=== PATIENT | female | born 1945 | race Caucasian/White ===

== ENCOUNTER → 2018-05-05 06:12 | Outpatient (CLI) | payer MEDICARE, SELFPAY ==
--- NOTE | 2018-05-05 06:17 | DI.MRI.S_ITS ---
PROCEDURE: MR SHOULDER LT WO CON INDICATIONS: pain and disability TECHNIQUE: Noncontrast oblique coronal T2 fast spin echo with fat saturation, oblique sagittal T1 spin echo and T2 fast spin echo with fat saturation, axial T1 spin echo and T2 fast spin echo with fat saturation through the shoulder. COMPARISON: [facility], MR, MR SHOULDER RT WO CON, 05/05/2018, 6:38. FINDINGS: Image quality: Excellent. Rotator cuff: There is tendinosis a moderate grade articular surface partial-thickness tear involving distal supraspinatus and infraspinatus at their insertion on greater tuberosity of the humeral head extending to musculotendinous junction. Tendinosis and low-grade intrasubstance partial thickness involving distal subscapularis is also seen. Sagittal images demonstrate moderate supraspinatus muscle atrophy. Bones and bursae: Moderate to severe glenohumeral joint osteoarthritis and moderate acromioclavicular joint osteoarthritis is seen. Mild edema in humeral head and adjacent acetabulum is seen. Intraosseous cyst formation and greater tuberosity of humeral head is also noted. There is moderate amount of glenohumeral joint fluid and small amount of subacromial subdeltoid bursal fluid. No gross loose body. Mild synovial lining thickening is seen suggestive of synovitis. The acromion demonstrates conventional anatomy, without an os acromiale. Capsule and soft tissues: In the absence of intra-articular contrast, the glenohumeral ligaments appear intact. There is global signal abnormality and contour irregularity throughout labrum suggestive of extensive labral tear. The long head of the biceps tendon demonstrates normal location and morphology. The rotator interval appears normal, without fibrosis. The coracohumeral ligament is normal in thickness. IMPRESSION: 1. Tendinosis are moderately articular surface partial-thickness involving distal supraspinatus and infraspinatus. Tendinosis and low-grade intrasubstance partial thickness involving distal subscapularis. Moderate supraspinatus muscle atrophy. 2. Moderate to severe glenohumeral joint osteoarthritis and moderate acromioclavicular joint osteoarthritis. Moderate amount of joint fluid and small amount of subacromial subdeltoid bursal fluid with suggestion of mild synovitis. No gross loose body. 3. Suggestion of extensive labral tear. Dictated by: Luke Momin M.D. on 05/05/2018 at 9:13 Approved by: Luke Momin M.D. on 05/05/2018 at 10:26
--- NOTE | 2018-05-05 06:17 | DI.MRI.S_ITS ---
PROCEDURE: MR SHOULDER RT WO CON INDICATIONS: pain and disability TECHNIQUE: Noncontrast oblique coronal T2 fast spin echo with fat saturation, oblique sagittal T1 spin echo and T2 fast spin echo with fat saturation, axial T1 spin echo and T2 fast spin echo with fat saturation through the shoulder. COMPARISON: [facility], MR, SHOULDER WITH CONTRAST, 12/14/2014, 13:37. [facility], CR, SHOULDER MIN 2VW (LT), 11/08/2014, 11:22. FINDINGS: Image quality: Excellent. Rotator cuff: There is tendinosis and moderate grade articular surface partial-thickness tear involving distal supraspinatus and infraspinatus extending to the musculotendinous junction. Tendinosis and moderate grade intrasubstance partial thickness involving distal subscapularis is also seen. There is likely focal full-thickness perforation involving most anterior fibers of distal supraspinatus at its insertion the humeral head. Sagittal images demonstrate mild to moderate supraspinatus muscle atrophy. Bones and bursae: Severe glenohumeral joint osteoarthritis and moderate acromioclavicular joint osteoarthritis is seen with joint space narrowing, extensive subchondral sclerosis, edema and cyst formation as well as prominent inferior marginal osteophyte formation. No fracture or dislocation. The acromion demonstrates conventional anatomy, without an os acromiale. Moderate amount of glenohumeral joint fluid and subacromial subdeltoid bursal fluid is seen with fluid extending distending the bicipital tendon sheath. No gross loose body is noted. Capsule and soft tissues: There is diffuse signal abnormality throughout labrum suggestive of diffuse labral tear. In the absence of intra-articular contrast, the glenohumeral ligaments appear intact. The long head of the biceps tendon demonstrates normal location and morphology. The rotator interval appears normal, without fibrosis. The coracohumeral ligament is normal in thickness. IMPRESSION: 1. Tendinosis and moderate grade articular surface partial thickness involving distal supraspinatus and infraspinatus at its insertion on greater tuberosity of humeral head with suggestion of focal full-thickness perforation involving most anterior fibers of distal supraspinatus. Tendinosis and moderate grade intrasubstance partial thickness involving distal subscapularis. Moderate grade supraspinatus muscle atrophy. 2. Moderate amount of fluid within glenohumeral joint and subacromial subdeltoid bursa distending proximal bicipital tendon sheath. No gross loose body. 3. Moderate acromioclavicular joint osteoarthritis and severe glenohumeral joint osteoarthritis. 4. Suggestion of extensive right shoulder labral tear with global signal abnormality and contour irregularity. Dictated by: Luke Momin M.D. on 05/05/2018 at 9:01 Approved by: Luke Momin M.D. on 05/05/2018 at 9:13
== END ==
PROVIDERS: Family Provider Family Medicine; PCP Student in an Organized Health Care Education/Training Program; Visit Provider Nurse Practitioner Family
DX: M75.111 Incomplete rotator cuff tear or rupture of right shoulder, not specified as traumatic (principal); M75.112 Incomplete rotator cuff tear or rupture of left shoulder, not specified as traumatic; M19.011 Primary osteoarthritis, right shoulder; M19.012 Primary osteoarthritis, left shoulder; M25.511 Pain in right shoulder; M25.512 Pain in left shoulder
CPT/HCPCS: 73221

== ENCOUNTER → 2018-11-25 10:18 | Outpatient (CLI) | payer MEDICARE, SELFPAY ==
[2018-11-25 12:24] LABS: Cholesterol 265 mg/dL (140-199); HDL Cholesterol 103 mg/dL (40-60); LDL Cholesterol Calculated 136 mg/dL (<100); Triglycerides 131 mg/dL (35-150)
== END ==
PROVIDERS: Family Provider Family Medicine; PCP Student in an Organized Health Care Education/Training Program; Visit Provider Student in an Organized Health Care Education/Training Program
DX: E55.9 Vitamin D deficiency, unspecified (principal); E78.2 Mixed hyperlipidemia
CPT/HCPCS: 36415; 80061; 82306

== ENCOUNTER → 2018-11-29 15:15 | Outpatient (CLI) | payer MEDICARE, SELFPAY | PROVIDERS: Family Provider Family Medicine; PCP Student in an Organized Health Care Education/Training Program; Visit Provider Student in an Organized Health Care Education/Training Program | DX: Z13.820 Encounter for screening for osteoporosis (principal); M81.0 Age-related osteoporosis without current pathological fracture; Z78.0 Asymptomatic menopausal state; G83.9 Paralytic syndrome, unspecified; Z87.891 Personal history of nicotine dependence | CPT/HCPCS: 77080; 77081 ==

== ENCOUNTER 2019-08-14 11:20 | Emergency (ER) | payer MEDICARE, SELFPAY ==
[2019-08-14 11:34] VITALS: BP 103/67; PULSE 63; RESP 16; TEMP 36.6; O2SAT 97; BMI 22.8
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
--- NOTE | 2019-08-14 12:31 | DI.US.S_ITS ---
PROCEDURE: US PERIPH VENOUS LOW EXTREM RT INDICATIONS: EDEMA TECHNIQUE: Real-time imaging, as well as color and pulse Doppler interrogation, were performed of the lower extremity deep veins from the inguinal ligament to the popliteal fossa. COMPARISON: [facility], CR, XR FOOT RT MIN 3V, 08/14/2019, 12:02. FINDINGS: The common femoral, femoral and popliteal veins are normally compressible, and free of intraluminal thrombus. Color and pulse Doppler demonstrate normal phasic intraluminal flow. There is normal augmentation response to distal compression maneuver. IMPRESSION: Negative for deep venous thrombosis. Dictated by: Curt Carter M.D. on 08/14/2019 at 12:21 Approved by: Curt Carter M.D. on 08/14/2019 at 12:22
[2019-08-14 13:27] LABS: Add Manual Diff / Slide Review NO; Basophils Absolute Auto 0 /uL (0-100); Basophils Percent Auto 1.1 % (0-2); Eosinophils Absolute Auto 100 /uL (0-450); Eosinophils Percent Auto 2.8 % (2-4); Hematocrit 41.9 % (36-46); Hemoglobin 14.4 g/dL (12.0-16.0); Lymphocytes Absolute Auto 1300 /uL (1100-4500); Lymphocytes Percent Auto 36.3 % (25-40); Mean Corpuscular HGB Conc 34.4 % (30-36); Mean Corpuscular Hemoglobin 30.6 PG (26-34); Mean Corpuscular Volume 88.8 fL (80-100); Monocytes Absolute Auto 200 /uL (0-900); Monocytes Percent Auto 6.8 % (3-14); Neutrophils Absolute Auto 1900 /uL (1500-7000); Platelet Count 184 X10^3/uL (150-400); Red Blood Cell Count 4.72 X10^6/uL (4.0-5.2); Red Cell Distribution Width 14.6 % (11.6-14.8); White Blood Cell Count 3.6 X10^3/uL (4.5-11.0)
[2019-08-14 13:40] LABS: Blood Urea Nitrogen 15 mg/dL (7-17); Calcium 9.9 mg/dL (8.4-10.2); Carbon Dioxide 29 mmol/L (22-32); Chloride 105 mmol/L (98-107); Estimated Glomerular Filt Rate > 60.0 mL/min (>60); Glucose 95 mg/dL (80-110); HEMOLYSIS < 15 (0-50); Potassium 4.3 mmol/L (3.4-5.1); Sodium 142 mmol/L (137-145)
[2019-08-14 13:43] LABS: C-Reactive Protein Quant < 0.5 mg/dL (<1.0); Erythrocyte Sedimentation Rate 22 MM/HR (0-20)
[2019-08-14 14:42] VITALS: BP 112/69; PULSE 54; RESP 15; O2SAT 100
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
== END 2019-08-14 14:52 | disposition home or self-care (01) ==
PROVIDERS: Emergency Provider Nurse Practitioner Family; Family Provider Family Medicine; PCP Student in an Organized Health Care Education/Training Program
DX: L03.115 Cellulitis of right lower limb (principal)
CPT/HCPCS: 73630; 80048; 85025; 85651; 86140; 93971; 99283; 99284

== ENCOUNTER → 2020-01-18 11:10 | Outpatient (CLI) | payer MEDICARE, SELFPAY ==
--- NOTE | 2020-01-18 11:11 | DI.RAD.S_ITS ---
PROCEDURE: XR WRIST RT MIN 3V INDICATIONS: Wrist injury; pain in anatomic snuffbox TECHNIQUE: 4 views of the wrist were acquired. COMPARISON: None. FINDINGS: Bones: No fractures or dislocations. Mild osteophytic changes in right wrist joint are seen. No suspicious bony lesions. Scaphoid view: Scaphoid is grossly intact. Soft tissues: No suspicious soft tissue calcifications. IMPRESSION: No gross acute wrist fracture or dislocation. Mild wrist joint osteoarthritis. Dictated by: Luke Momin M.D. on 01/18/2020 at 12:20 Approved by: Luke Momin M.D. on 01/18/2020 at 12:30
== END ==
PROVIDERS: Family Provider Family Medicine; PCP Student in an Organized Health Care Education/Training Program; Referring Provider Student in an Organized Health Care Education/Training Program; Visit Provider Student in an Organized Health Care Education/Training Program
DX: S69.91XA Unspecified injury of right wrist, hand and finger(s), initial encounter (principal); X58.XXXA Exposure to other specified factors, initial encounter; M19.031 Primary osteoarthritis, right wrist
CPT/HCPCS: 73110

== ENCOUNTER → 2021-05-29 17:16 | Outpatient (CLI) | payer MEDICARE, SELFPAY ==
[2021-05-29 18:11] LABS: BUN Creatinine Ratio 21.5 (6-22); Blood Urea Nitrogen 14 mg/dL (7-17); Calcium 9.7 mg/dL (8.4-10.2); Carbon Dioxide 29 mmol/L (22-32); Cholesterol 283 mg/dL (140-199); Estimated Glomerular Filt Rate > 60.0 mL/min (>60); Glucose 83 mg/dL (80-110); HEMOLYSIS < 15 (0-50); Triglycerides 186 mg/dL (35-150)
[2021-05-29 18:27] LABS: Chloride 104 mmol/L (98-107); HDL Cholesterol 78 mg/dL (40-60); Potassium 4.1 mmol/L (3.4-5.1); Sodium 141 mmol/L (137-145)
[2021-05-29 19:14] LABS: LDL Cholesterol Calculated 168 mg/dL (<100)
== END ==
PROVIDERS: Family Provider Family Medicine; PCP Student in an Organized Health Care Education/Training Program; Referring Provider Student in an Organized Health Care Education/Training Program; Visit Provider Student in an Organized Health Care Education/Training Program
DX: Z79.899 Other long term (current) drug therapy (principal); E78.2 Mixed hyperlipidemia
CPT/HCPCS: 36415; 80048; 80061

== ENCOUNTER → 2021-06-03 13:55 | Outpatient (CLI) | payer MEDICARE, SELFPAY | PROVIDERS: Family Provider Family Medicine; PCP Student in an Organized Health Care Education/Training Program; Referring Provider Student in an Organized Health Care Education/Training Program; Visit Provider Student in an Organized Health Care Education/Training Program | DX: Z78.0 Asymptomatic menopausal state (principal); M81.0 Age-related osteoporosis without current pathological fracture; Z87.891 Personal history of nicotine dependence | CPT/HCPCS: 77080 ==

== ENCOUNTER → 2022-03-10 10:51 | Outpatient (CLI) | payer MEDICARE, MEDICAID, SELFPAY ==
--- NOTE | 2022-03-10 10:53 | DI.RAD.S_ITS ---
PROCEDURE: XR WRIST LT MIN 3V INDICATIONS: Traumatic wrist injury TECHNIQUE: four views of the wrist were acquired. COMPARISON: [facility], CR, XR WRIST RT MIN 3V, 01/18/2020, 11:06. FINDINGS: Bones: 1st CMC and STT degenerative changes. No acute fracture or dislocation. Scaphoid view: No fracture detected Soft tissues: No suspicious soft tissue calcifications. IMPRESSION: No displaced fracture or dislocation. If there is high concern for occult injury, consider cross-sectional imaging or repeat radiography. First CMC and STT degenerative changes. Dictated by: Gorge Red M.D. on 03/10/2022 at 12:35 Approved by: Gorge Red M.D. on 03/10/2022 at 12:37
== END ==
PROVIDERS: Family Provider Family Medicine; PCP Student in an Organized Health Care Education/Training Program; Referring Provider Student in an Organized Health Care Education/Training Program; Visit Provider Student in an Organized Health Care Education/Training Program
DX: S69.92XA Unspecified injury of left wrist, hand and finger(s), initial encounter (principal); X58.XXXA Exposure to other specified factors, initial encounter
CPT/HCPCS: 73110

== ENCOUNTER → 2022-04-05 19:06 | Outpatient (CLI) | payer MEDICARE, SELFPAY | PROVIDERS: Family Provider Family Medicine; PCP Student in an Organized Health Care Education/Training Program; Visit Provider Nurse Practitioner Family | DX: R30.0 Dysuria (principal) | CPT/HCPCS: 87077; 87086; 87186 ==

== ENCOUNTER → 2023-06-01 15:00 | Outpatient (CLI) | payer MEDICARE, MEDICAID, SELFPAY ==
--- NOTE | 2023-06-01 | DI.RAD.S_ITS ---
PROCEDURE: XR CHEST 2V INDICATIONS: Chronic cough TECHNIQUE: 2 views of the chest were acquired. COMPARISON: None. FINDINGS: Surgical changes and devices: Spinal fusion hardware. Lungs and pleura: Lungs are clear. No pleural effusions or pneumothorax. Mediastinum: Mediastinal contours are normal. Heart size is normal. Bones and chest wall: No suspicious bony abnormalities. Soft tissues appear unremarkable. IMPRESSION: No acute process. Dictated by: Trish Gamino M.D. on 06/01/2023 at 16:12 Approved by: Trish Gamino M.D. on 06/01/2023 at 16:12
[2023-10-01 19:49] LABS: Appearance Urine UA CLEAR; Bilirubin Urine UA 1+ (NEGATIVE); Color Urine UA YELLOW; Glucose Urine UA NEGATIVE (Negative); Ketones Urine UA 3+ (NEGATIVE); Leukocyte Esterase Urine UA NEGATIVE (NEGATIVE); Nitrite Urine UA NEGATIVE (Negative); Occult Blood Urine UA NEGATIVE (Negative); Protein Urine UA NEGATIVE (Negative); Specific Gravity Urine UA >=1.030 (1.000-1.035); Urobilinogen Urine UA 0.2 E.U./dL (0.2)
[2023-10-01 20:15] LABS: Ictotest Urine Negative (Negative)
[2023-10-01 20:34] LABS: Bacteria Urine None Seen; Calcium Oxalate Crystals Urine Many; Culture Indicated Urine Cult Not Indicated; RBC Urine 0-1/HPF (0-5/HPF); Squamous Epithelial Cell Urine 0-1 /HPF (0-5/HPF); Urine Volume 10mL (spun); WBC Urine 0-1/HPF (0-5/HPF)
== END ==
PROVIDERS: Family Medicine; Family Provider Family Medicine; PCP Pediatrics; Referring Provider Physician Assistant; Visit Provider Physician Assistant
DX: R05.3 Chronic cough (principal)
CPT/HCPCS: 71046; 81001

== ENCOUNTER → 2024-08-01 14:21 | Outpatient (CLI) | payer MEDICARE, MEDICAID, SELFPAY ==
[2024-08-01 15:08] LABS: Hematocrit 41.2 % (36-46); Hemoglobin 13.6 g/dL (12.0-16.0); Mean Corpuscular Hemoglobin 29.5 PG (26-34); Mean Corpuscular Volume 89.2 fL (80-100); Platelet Count 185 X10^3/uL (150-400); Red Blood Cell Count 4.62 X10^6/uL (4.0-5.2); Red Cell Distribution Width 13.6 % (11.6-14.8); White Blood Cell Count 3.2 X10^3/uL (4.5-11.0)
[2024-08-01 15:42] LABS: BUN Creatinine Ratio 16.2 (6-22); Blood Urea Nitrogen 12 mg/dL (7-17); Calcium 9.4 mg/dL (8.4-10.2); Carbon Dioxide 28 mmol/L (22-32); Chloride 104 mmol/L (98-107); Cholesterol 290 mg/dL (140-199); Estimated Glomerular Filt Rate > 60 mL/min (>60); Glucose 94 mg/dL (80-110); HDL Cholesterol 81 mg/dL (40-60); HEMOLYSIS < 15 (0-50); LDL Cholesterol Calculated 160 mg/dL (<100); Potassium 4.1 mmol/L (3.4-5.1); Sodium 139 mmol/L (137-145); Triglycerides 243 mg/dL (35-150)
== END ==
PROVIDERS: Family Provider Family Medicine; PCP Family Medicine; Referring Provider Family Medicine; Visit Provider Family Medicine
DX: E78.2 Mixed hyperlipidemia (principal); M81.0 Age-related osteoporosis without current pathological fracture
CPT/HCPCS: 36415; 80048; 80061; 85027

== ENCOUNTER → 2024-08-17 14:49 | Outpatient (CLI) | payer MEDICARE, MEDICAID, SELFPAY ==
--- NOTE | 2024-08-17 14:51 | DI.RAD.S_ITS ---
PROCEDURE: XR DEXA AXIAL SKELETON INDICATIONS: osteoporosis COMPARISON: [facility], , XR DEXA AXIAL SKELETON, 06/03/2021, 14:47. FINDINGS: Lumbar Spine (L3-4): Bone mineral density 1.198 g/cm2, T score 0.9, normal. Left Femoral Neck: Bone mineral density 0.654 g/cm2, T score -1.8, osteopenia. Left Hip: Bone mineral density 0.504 g/cm2, T score -3.6, osteoporosis. Change compared to previous, 22.4%. Statistical significance of bone mineral density change cannot be determined due to dissimilar scan types or analysis method. Fracture Risk Calculation (when applicable): FRAX score not valid in the setting of osteoporosis. 10-year fracture risk of a major osteoporotic fracture 33 percent and of a hip fracture 20 percent. (T score greater or equal to -1.0 to: NORMAL) (T score from -1.1 to -2.4: OSTEOPENIA) (T score less than or equal to -2.5: OSTEOPOROSIS) IMPRESSION: Osteoporosis. The patient is at a high risk of fracture. Increase in bone mineral density of the left hip compared to prior. Follow-up guidelines as follows: Osteoporosis: Consider a repeat DEXA and Vertebral Fracture Assessment (VFA) exam in 2 years or sooner if medically necessary, to reassess this patient's status. Osteopenia: Consider a repeat DEXA in 2-3 years to reassess this patient's status, or if there is a new clinical indication. Normal: Consider a repeat DEXA in 5 years or sooner, or if there is a new clinical indication. All treatment decisions require clinical judgment and consideration of individual patient factors, including patient preferences, comorbidities, previous drug use, risk factors not captured in the FRAX model (e.g., frailty, falls, vitamin D deficiency, increased bone turnover, interval significant decline in bone density ) and possible under- or over-estimation of fracture risk by FRAX. In addition, the NOF Guide recommends that FDA-approved medical therapies be considered in postmenopausal women and men age >= 50 years with a: * Hip or vertebral (clinical or morphometric) fracture * T-score of <=-2.5 at the spine or hip * Ten-year fracture probability by FRAX of >= 3% for hip fracture or >=20% for major osteoporotic fracture. Dictated by: Poly Leggett M.D. on 08/18/2024 at 15:07 Approved by: Poly Leggett M.D. on 08/18/2024 at 15:10
== END ==
LOC: RAD 14:51
PROVIDERS: PCP Family Medicine; Referring Provider Family Medicine; Visit Provider Family Medicine
DX: M81.0 Age-related osteoporosis without current pathological fracture (principal); Z78.0 Asymptomatic menopausal state
CPT/HCPCS: 77080